=== PATIENT | female | born 2000 | race Caucasian/White ===

== ENCOUNTER 2018-05-30 10:55 | Emergency (ER) | payer OTHER ==
--- NOTE | 2018-05-30 11:03 | ER Report ---
History and Physical Time Seen By MD: 11:02 HPI/ROS CHIEF COMPLAINT: Cough general malaise HISTORY OF PRESENT ILLNESS: Otherwise healthy 18-year-old female comes in with a nonproductive cough that she has a burning in her chest general malaise doesn't feel very went to an outside care facility had a negative flu swab came in today because her symptoms have not gotten worse correction has not got better with Robitussin. Denies any nausea vomiting diarrhea since her cough is nonproductive no recent travel or known sick contacts no additional complaints noted REVIEW OF SYSTEMS: Respiratory: Cough no shortness of breath Cardiovascular: No chest pain, no palpitations. Gastrointestinal: No vomiting, no abdominal pain. Musculoskeletal: No back pain. Remainder of the 14 system rev: Yes Allergies: Coded Allergies: amoxicillin (Verified Allergy, Unknown, 05/30/18) clavulanic acid (Verified Allergy, Unknown, 05/30/18) Home Meds No Active Prescriptions or Reported Meds Reviewed Nurses Notes: Yes Old Medical Records Reviewed: Yes Constitutional Vital Sign - Last 24 Hours 05/30/18 11:00 Temp 100.2 Pulse 144 Resp 20 B/P (MAP) 112/72 Pulse Ox 94 O2 Delivery Room Air Physical Exam General Appearance: [The patient is alert, has no immediate need for airway protection and no current signs of toxicity.] Appears uncomfortable Eyes: Pupils equal and round no injection. Respiratory: Chest is non tender, lungs are clear to auscultation. Cardiac: regular rate and rhythm [ ] Gastrointestinal: Abdomen is soft and non tender, no masses, bowel sounds normal. Musculoskeletal: Neck: Neck is supple and non tender. Extremities have full range of motion and are non tender. Skin: No rashes or lesions. [ ] DIFFERENTIAL DIAGNOSIS: After history and physical exam differential diagnosis was considered for viral upper respiratory pneumonia bronchitis influenza Medical Decision Making Data Points Laboratory Hematology Test 05/30/18 11:00 Influenza Virus Type A (PCR) Positive (NEGATIVE) Influenza Virus Type B (PCR) Negative (NEGATIVE) Chemistry Test 05/30/18 11:00 Influenza Virus Type A (PCR) Positive (NEGATIVE) Influenza Virus Type B (PCR) Negative (NEGATIVE) ED Course/Re-evaluation ED Course 18-year-old female comes in with cough general malaise she is influenza a positive been symptomatic for 3 days no indication for medication symptomatic treatment only follow-up with primary care Decision to Disposition Date: May 30, 2018 Decision to Disposition Time: 11:45 Depart Departure Latest Vital Signs Vital Signs Date Time Temp Pulse Resp B/P (MAP) Pulse Ox O2 Delivery O2 Flow Rate FiO2 05/30/18 11:00 100.2 144 20 112/72 94 Room Air Impression: Primary Impression: Influenza Condition: Improved Disposition: HOME OR SELF-CARE Referrals: ELIDA ROBB MD 5 Days New Scripts No Active Prescriptions or Reported Meds Patient Instructions: Influenza (DC) NAGI LUNA MD May 30, 2018 11:03
[2018-05-30] MEDS ORDERED: ACETAMINOPHEN 500 MG TAB PO ONE (11:05)
--- NOTE | 2018-05-30 11:36 | RADIOLOGY IMAGING REPORT ---
FACILITY: [facility] [place] PATIENT NAME: Marina Shrestha : 2000 MR: [id number] V: [id number] EXAM DATE: ORDERING PHYSICIAN: NAGI LUNA TECHNOLOGIST: [place] [facility] [place] Patient: Marina Shrestha : 2000 Visit/Account:[id number] Date of Sevice: 05/30/2018 Study: Frontal and lateral views of the chest Indication: Shortness of breath, cough, malaise, chills, chest tightness Comparison study: None Findings: PA and lateral views of the chest demonstrate no evidence of acute infiltrate. There is no evidence of pleural effusion. There is no evidence of pneumothorax. The mediastinal, cardiac, and diaphragmatic contours are unremarkable. The visualized bony structures are unremarkable. IMPRESSION: Unremarkable chest. Report Dictated By: Elia Partida at 05/30/2018 11:32 AM Report E-Signed By: Elia Partida at 05/30/2018 11:32 AM WSN:[email or web address]
[2018-05-30 11:52] VITALS: BP 99/67
== END 2018-05-30 11:57 | disposition home or self-care (01) ==
LOC: ER 11:10
DX: J09.X2 Influenza due to identified novel influenza A virus with other respiratory manifestations (principal)
CPT/HCPCS: 71046; 87502; 99283

== ENCOUNTER 2018-06-05 19:27 | Emergency (ER) | payer OTHER ==
--- NOTE | 2018-06-05 19:42 | ER Report ---
History and Physical Time Seen By MD: 19:42 Hx. of Stated Complaint: diagnosised with flu last mon. cough getting worst, hurts to breath. has had a fever of 102. no meds, using a cold washrag on head HPI/ROS CHIEF COMPLAINT: cough and chest pain HISTORY OF PRESENT ILLNESS: 18-year-old female presents to ED with cough and chest pain. Patient was diagnosed with the flu last Monday. Fever, chills, vomiting, nausea, facial congestion have all subsided. Reports that wet cough is still present with chest pain. The chest pain feels like a burning sensation that worsens with coughing, talking, activity. Reports that she still experiences a mild burning sensation with rest. Reports she has not tried any OTC medications to treat her cough. REVIEW OF SYSTEMS: Constitutional: Reports decreased appetite and decreased food intake. Denies fever, chills, night sweats. HEENT: Denies sore throat, sinus congestion, vision changes, ear pain. Respiratory: Reports cough, inability to take a deep breath, dyspnea. Cardiovascular: Reports chest pain with coughing, talking, activity. Denies heart palpitations. Gastrointestinal: No vomiting, no abdominal pain. Denies constipation or diarrhea. Musculoskeletal: No back pain. Allergies: Coded Allergies: amoxicillin (Verified Allergy, Unknown, 06/05/18) clavulanic acid (Verified Allergy, Unknown, 06/05/18) Home Meds Active Scripts Benzonatate 100 Mg Cap (TESSALON PERLE 100 MG CAP) 100 Mg Capsule, 100 MG PO TID PRN for COUGH, #15 CAP Prov:TIMBO FARIAS 06/05/18 Promethazine HCl/Codeine (Prometh-Codein 6.25-10 mg/5 ml) 5 Ml Syrup, 1 TSP PO QHS PRN for COUGH, #35 ML Prov:TIMBO FARIAS 06/05/18 Past Medical/Surgical History Hx of influenza diagnosed 05/30/2018. No other significant past medical or surgical history. Reviewed Nurses Notes: Yes Hx Smoking: No Smoking Status: Never Smoker Constitutional Vital Sign - Last 24 Hours 06/05/18 06/05/18 06/05/18 06/05/18 19:30 19:30 19:42 19:50 Temp 97.8 Pulse 76 90 84 Resp 16 18 B/P (MAP) 119/77 119/77 (91) Pulse Ox 98 94 O2 Delivery Room Air 06/05/18 06/05/18 06/05/18 06/05/18 19:50 19:57 20:00 20:01 Pulse 81 75 Resp 18 B/P (MAP) 106/76 (86) Pulse Ox 94 96 O2 Delivery Room Air 06/05/18 06/05/18 06/05/18 06/05/18 20:12 20:27 20:30 20:42 Pulse 96 82 80 B/P (MAP) 115/74 (88) Pulse Ox 93 96 97 06/05/18 06/05/18 06/05/18 20:57 21:00 21:12 Pulse 84 ??? B/P (MAP) 102/75 (84) Pulse Ox 91 Physical Exam General Appearance: The patient is alert, has no immediate need for airway protection and no current signs of toxicity. Respiratory: Chest is non tender, lungs are clear to auscultation, but with decreased breath sounds throughout. Cardiac: regular rate and rhythm Gastrointestinal: Abdomen is soft and non tender, no masses, bowel sounds normal. Musculoskeletal: Neck: Neck is supple and non tender. DIFFERENTIAL DIAGNOSIS: After history and physical exam differential diagnosis was considered for pneumonia, upper respiratory tract infection, cough. Medical Decision Making Data Points Result Diagram: 06/05/18195506/05/181955 Laboratory Hematology Test 06/05/18 19:56 Red Blood Count 4.83 M/uL (4.17-5.56) Mean Corpuscular Volume 87.4 fL (80.0-96.0) Mean Corpuscular Hemoglobin 29.5 pg (26.0-33.0) Mean Corpuscular Hemoglobin Concent 33.7 g/dL (32.0-36.0) Red Cell Distribution Width 12.6 % (11.5-14.5) Mean Platelet Volume 9.5 fL (7.2-11.1) Neutrophils (%) (Auto) 32.9 % (39.4-72.5) Lymphocytes (%) (Auto) 55.7 % (17.6-49.6) Monocytes (%) (Auto) 8.7 % (4.1-12.4) Eosinophils (%) (Auto) 1.9 % (0.4-6.7) Basophils (%) (Auto) 0.8 % (0.3-1.4) Nucleated RBC Relative Count (auto) 0.0 /100WBC Neutrophils # (Auto) 1.4 K/uL (2.0-7.4) Lymphocytes # (Auto) 2.4 K/uL (1.3-3.6) Monocytes # (Auto) 0.4 K/uL (0.3-1.0) Eosinophils # (Auto) 0.1 K/uL (0.0-0.5) Basophils # (Auto) 0.0 K/uL (0.0-0.1) Nucleated RBC Absolute Count (auto) 0.00 K/uL Sodium Level 141 mmol/L (137-145) Potassium Level 4.0 mmol/L (3.5-5.0) Chloride Level 106 mmol/L (98-107) Carbon Dioxide Level 25 mmol/L (22-31) Blood Urea Nitrogen 7 mg/dl (7-18) Creatinine 0.90 mg/dl (0.52-1.04) Glomerular Filtration Rate Calc > 60.0 Random Glucose 84 mg/dl (75-110) Calcium Level 9.4 mg/dl (8.4-10.2) Total Bilirubin 0.2 mg/dl (0.2-1.3) Aspartate Amino Transf (AST/SGOT) 19 U/L (0-35) Alanine Aminotransferase (ALT/SGPT) 22 U/L (0-56) Alkaline Phosphatase 75 U/L (0-126) Total Protein 8.0 g/dl (6.3-8.2) Albumin 4.6 g/dl (3.5-5.0) Chemistry Test 06/05/18 19:56 White Blood Count 4.3 k/uL (4.5-11.0) Red Blood Count 4.83 M/uL (4.17-5.56) Hemoglobin 14.2 g/dL (12.0-16.0) Hematocrit 42.2 % (34.0-47.0) Mean Corpuscular Volume 87.4 fL (80.0-96.0) Mean Corpuscular Hemoglobin 29.5 pg (26.0-33.0) Mean Corpuscular Hemoglobin Concent 33.7 g/dL (32.0-36.0) Red Cell Distribution Width 12.6 % (11.5-14.5) Platelet Count 222 K/uL (150-450) Mean Platelet Volume 9.5 fL (7.2-11.1) Neutrophils (%) (Auto) 32.9 % (39.4-72.5) Lymphocytes (%) (Auto) 55.7 % (17.6-49.6) Monocytes (%) (Auto) 8.7 % (4.1-12.4) Eosinophils (%) (Auto) 1.9 % (0.4-6.7) Basophils (%) (Auto) 0.8 % (0.3-1.4) Nucleated RBC Relative Count (auto) 0.0 /100WBC Neutrophils # (Auto) 1.4 K/uL (2.0-7.4) Lymphocytes # (Auto) 2.4 K/uL (1.3-3.6) Monocytes # (Auto) 0.4 K/uL (0.3-1.0) Eosinophils # (Auto) 0.1 K/uL (0.0-0.5) Basophils # (Auto) 0.0 K/uL (0.0-0.1) Nucleated RBC Absolute Count (auto) 0.00 K/uL Glomerular Filtration Rate Calc > 60.0 Calcium Level 9.4 mg/dl (8.4-10.2) Total Bilirubin 0.2 mg/dl (0.2-1.3) Aspartate Amino Transf (AST/SGOT) 19 U/L (0-35) Alanine Aminotransferase (ALT/SGPT) 22 U/L (0-56) Alkaline Phosphatase 75 U/L (0-126) Total Protein 8.0 g/dl (6.3-8.2) Albumin 4.6 g/dl (3.5-5.0) EKG/Imaging Imaging Technique: CHEST PA LAT HISTORY: cough, influenza positive x1 week COMPARISON: Chest radiograph 05/30/2018 Findings: The lungs are clear. No pleural effusion or pneumothorax. The cardiomediastinal silhouette is normal. Impression: 1. No acute cardiopulmonary process. Report Dictated By: Sky Calzada DO at 06/05/2018 8:30 PM Report E-Signed By: Sky Calzada DO at 06/05/2018 8:30 PM ED Course/Re-evaluation ED Course Patient was admitted to an exam room, history and physical was performed, differential diagnoses considered. Productive cough, burning chest pain, and decreased breath sounds noted with review of systems and exam. IV started with NS for hydration. Labs drawn. Chest x-ray performed to rule out pneumonia. Duoneb given; patient reports that the Duoneb did not help her symptoms. Chest x-ray with no cardiopulmonary processes. CBC likely consistent with viral infection. Plan discussed with patient. Plan to DC home with codeine cough syrup at night and tessalon pearls during the day to help with cough. Encouraged saline rinses to help with dry nose and congestion. Decision to Disposition Date: Jun 05, 2018 Decision to Disposition Time: 21:07 Depart Departure Latest Vital Signs Vital Signs Date Time Temp Pulse Resp B/P (MAP) Pulse Ox O2 Delivery O2 Flow Rate FiO2 06/05/18 21:12 ??? 06/05/18 21:00 102/75 (84) 06/05/18 20:57 91 06/05/18 20:01 18 06/05/18 19:50 Room Air 06/05/18 19:30 97.8 Impression: Primary Impression: Influenza Additional Impression: Cough Condition: Improved Disposition: HOME OR SELF-CARE New Scripts Benzonatate 100 Mg Cap (TESSALON PERLE 100 MG CAP) 100 Mg Capsule 100 MG PO TID PRN for COUGH, #15 CAP Prov: TIMBO FARIAS 06/05/18 Promethazine HCl/Codeine (Prometh-Codein 6.25-10 mg/5 ml) 5 Ml Syrup 1 TSP PO QHS PRN for COUGH, #35 ML Prov: TIMBO FARIAS 06/05/18 Patient Instructions: Acute Cough (ED) Additional Instructions: Increase fluid intake. Get plenty of rest. Follow up with your primary care provider. Return to the ER if condition worsens. Take medication as prescribed. Problem Qualifiers TIMBO FARIAS Jun 05, 2018 19:42
[2018-06-05] MEDS ORDERED: NS(*) 0.9% 1000 ML BAG 1,000 ML IV ONE (19:50)
[2018-06-05] MEDS ORDERED: ALBUTEROL/IPRATROPIUM 3 ML NEB NEB ONE (19:55)
[2018-06-05 20:03] LABS: PLATELET COUNT, AUTOMATED 222 K/uL (150-450)
--- NOTE | 2018-06-05 20:34 | RADIOLOGY IMAGING REPORT ---
FACILITY: [facility] [place] PATIENT NAME: Marina Shrestha : 2000 MR: [id number] V: [id number] EXAM DATE: ORDERING PHYSICIAN: TIMBO FARIAS TECHNOLOGIST: [facility] Patient: Marina Shrestha : 2000 Visit/Account:[id number] Date of Sevice: 06/05/2018 Technique: CHEST PA LAT HISTORY: cough, influenza positive x1 week COMPARISON: Chest radiograph 05/30/2018 Findings: The lungs are clear. No pleural effusion or pneumothorax. The cardiomediastinal silhouett e is normal. Impression: 1. No acute cardiopulmonary process. Report Dictated By: Sky Calzada DO at 06/05/2018 8:30 PM Report E-Signed By: Sky Calzada DO at 06/05/2018 8:30 PM WSN:[id number]
[2018-06-05] MEDS ORDERED: PROMETH/COD SYRP 6.25-10MG/5ML PO ONE (20:50)
[2018-06-05] MEDS ORDERED: BENZONATATE 100 MG CAP PO ONE (20:50)
[2018-06-05 21:00] VITALS: BP 102/75
[2018-06-05] MEDS ORDERED: PROM5SYR PO (21:06)
[2018-06-05] MEDS ORDERED: BENZ100C4 PO (21:06)
== END 2018-06-05 21:12 | disposition home or self-care (01) ==
LOC: ER 20:15
DX: J11.1 Influenza due to unidentified influenza virus with other respiratory manifestations (principal); R05 Cough
CPT/HCPCS: 71046; 85025; 94640; 99283; J7030; J7620; 82040; 82247; 82310; 82374; 82435; 82565; 82947; 84075; 84132; 84155; 84295; 84450; 84460; 84520; 96360

== ENCOUNTER 2018-07-30 12:21 | Emergency (ER) | payer OTHER ==
[~2018-07-30 12:21] MED LIST: BENZ100C4 PO; PROM5SYR PO
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
[2018-07-30 12:25] VITALS: BP 102/70
[2018-07-30] MEDS ORDERED: BIRTH CONTROL (12:31)
[2018-07-30] MEDS ORDERED: ONDA4TAB97 PO (12:47)
[2018-07-30] MEDS ORDERED: LOR5/325 PO (12:47)
== END 2018-07-30 12:52 | disposition home or self-care (01) ==
LOC: ER 12:27
DX: F07.81 Postconcussional syndrome (principal); W55.29XA Other contact with cow, initial encounter
CPT/HCPCS: 99281